=== PATIENT | female | born 1950 | race Caucasian/White ===

== ENCOUNTER → 2018-06-30 | Outpatient (CLI) | payer MEDICARE, BC ==
[~2018-06-30] MED LIST: BUPROPION HCL75 MG PEG; CITALOPRAM HBR20 MG PO; DIOVAN160 MG PO; METFORMIN HCL500 M2 PO; OMEPRAZOLE40 MG PO; SIMVASTATIN20 MG PO; TRAZODONE HCL150 MG PO
--- NOTE | 2018-07-16 08:33 | Diagnostic Imaging Report ---
THIS REPORT HAS BEEN AMENDED. #[id number] - [id number] #BILATERAL DIGITAL SCREENING MAMMOGRAM WITH CAD: 06/30/2018 CLINICAL: Routine screening. No prior exams were available for comparison. Current study contains 4 films. The tissue of both breasts is predominantly fatty. Current study was also evaluated with a Computer Aided Detection (CAD) system. There is an irregular density in the right breast at 7 o'clock middle depth. This is highlighted with CAD on the CC view. No other significant masses, calcifications, or other findings are seen in either breast. IMPRESSION: INCOMPLETE: NEEDS ADDITIONAL IMAGING EVALUATION The irregular density in the right breast is indeterminate. Additional views with possible ultrasound are recommended. The patient is known to have prior mammograms-if these become available for review then additional studies may not be necessary. The patient will be contacted by the Mammography Department to schedule this appointment. Ben Gotti Jr., D.O. 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 Comparison to outside mammograms dated 03/01/2015 from [facility] is now possible as they have become available. There is no significant interval change from the old studies. The density described was present previously. There is no evidence of malignancy. Amended BI-RADS: 2 Benign letter sent: Compared to Prior B9
== END ==
LOC: MAMMO 12:41
PROVIDERS: ATTEND Internal Medicine
DX: Z12.31 Encounter for screening mammogram for malignant neoplasm of breast (principal)
CPT/HCPCS: 77067

== ENCOUNTER → 2018-09-22 | Outpatient (CLI) | payer MEDICARE, BC ==
--- NOTE | 2018-09-22 14:20 | Diagnostic Imaging Report ---
Radiographs of the right knee - 3 views HISTORY: Pain COMPARISON: None available. FINDINGS: Bones: No acute displaced fracture. Osseous alignment is within normal limits. Joints: Mild tricompartmental degenerative arthrosis. No osseous erosion. Soft tissues: The soft tissues appear unremarkable. IMPRESSION: Mild tricompartmental degenerative arthrosis. No osseous erosion. Signed by: Dr. Adi Richard M.D. on 09/22/2018 2:17 PM
== END ==
LOC: RAD 13:48
PROVIDERS: ATTEND Internal Medicine
DX: M25.561 Pain in right knee (principal)

== ENCOUNTER → 2019-06-22 | Outpatient (CLI) | payer BC, MEDICARE ==
--- NOTE | 2019-06-22 15:01 | Diagnostic Imaging Report ---
EXAMINATION: CHEST 2 VIEWS INDICATION: COPD COMPARISON: None FINDINGS: LINES/TUBES:None LUNGS:The lungs are well-inflated. No focal consolidation or pulmonary edema. PLEURA:No pleural effusion or pneumothorax. MEDIASTINUM:The cardiomediastinal silhouette appears normal in size and shape. BONES/SOFT TISSUES:No acute osseous injury. ABDOMEN: Hiatal hernia. No free air under the diaphragm. IMPRESSION: No acute cardiopulmonary abnormality. Hiatal hernia. Signed by: Katelyn Tabor MD on 06/22/2019 2:57 PM
== END ==
LOC: RAD 13:58
PROVIDERS: ATTEND Internal Medicine
DX: J44.9 Chronic obstructive pulmonary disease, unspecified (principal)
CPT/HCPCS: 71046

== ENCOUNTER → 2019-07-08 | Outpatient (CLI) | payer MEDICARE, BC | LOC: MAMMO 14:24 | PROVIDERS: ATTEND Internal Medicine | DX: Z12.31 Encounter for screening mammogram for malignant neoplasm of breast (principal) | CPT/HCPCS: 77067 ==

== ENCOUNTER → 2021-09-25 | Outpatient (CLI) | payer MEDICARE, BC | LOC: RAD 13:24 | PROVIDERS: ATTEND Internal Medicine | DX: J44.9 Chronic obstructive pulmonary disease, unspecified (principal) | CPT/HCPCS: 71046 ==